=== PATIENT | male | born 1985 | race Two or more races ===

== ENCOUNTER 2024-04-25 11:00 | Emergency (ER) | payer MEDICAID, SELFPAY ==
[2024-04-25 11:20] VITALS: BP 156/92; PULSE 84; RESP 16; TEMP 36.7; O2SAT 99; BMI 29.0
--- NOTE | 2024-04-25 11:28 | XR_ITS ---
Examination: CT brain head without contrast. 2-D sagittal coronal reconstructions Date and time of exam:April 2019 5003 hrs. Indications: Onset dizziness episodes today CTDI: vol (mGy):51 DLP: (mGycm):1070 Technique: Multiple CT axial sections of the brain have been obtained, 5 mm slice thickness. Contrast has not been administered. 2-D sagittal, coronal reconstructions have been obtained Low dose protocols were performed. One or more of the following dose reduction techniques were used; automated exposure control, adjustment of the mA and/or KV according to patient size, use of iterative reconstruction technique. Findings: No significant ventricular enlargement. Intra-axial or extra-axial hemorrhage density is not seen. No mass effect or midline shift Basal cisterns are not remarkable. Fourth ventricle is midline. Cranial vault intact. Impression: Negative for acute hemorrhage, mass effect or midline shift Advise clinical correlation and follow-up accordingly
--- NOTE | 2024-04-25 11:28 | EKG_ITS ---
[facility] Test Date: 2024-04-25 Pat Name: KANE NICHOLSON Department: Room: - Gender: Male [employer]: : 1985 Requested By: Ricky Emmanuel Order Number: [id number] Reading MD: Ricky Emmanuel Measurements Intervals [place] Rate: 84 P: 32 SC: 147 QRS: 12 QRSD: 128 T: 40 QT: 344 QTc: 407 Interpretive Statements SINUS RHYTHM POSSIBLE RIGHT VENTRICULAR CONDUCTION DELAY [RSR (QR) IN V1/V2] No previous ECG available for comparison /[id number]/[email or web address]/[id number]
--- NOTE | 2024-04-25 11:30 | EDNOTE_ITS ---
ED Headache RME/HPI General Chief Complaint: Headache Stated Complaint: GARCIA X 1 WK, ACHING IN SHOULDERS X 1 WK Time Seen by Provider: 04/25/24 11:03 Source: patient Arrival date/time: 04/25/24 11:00 38-year-old male with no known medical history presents to the emergency room with a chief complaint of headache, dizziness, aching in shoulders x 1 week Mode of arrival: ambulatory Limitations: no limitations Related Data Previous Rx's ?Medication ?Instructions ?Recorded acetaminophen-caffeine 500 mg-65 1 tab PO Q8H PRN pain #30 tabs 04/25/24 mg tablet (Excedrin Tension Headache) meclizine 25 mg tablet 25 mg PO BID PRN dizziness # 14 tabs 04/25/24 Allergies Allergy/AdvReac Type Severity Reaction Status Date / Time No Known Allergies Allergy Verified 04/25/24 11:04 Review of Systems Review of Systems Systems Reviewed: All systems reviewed, normal except as documented Constitutional Constitutional: Reports system reviewed and no additional complaints, except as documented, Denies fatigue, Denies fever(s), Reports headache(s) and Reports weakness Eyes Eyes: Reports system reviewed and no additional complaints, except as documented, Denies blurry vision and Denies change in vision ENT Ears, Nose, Mouth, and Throat: Reports system reviewed and no additional complaints, except as documented, Reports dizziness, Denies otalgia, Reports headache(s), Denies nasal congestion, Denies throat swelling and Denies vertigo Cardiovascular Cardiovascular: Reports system reviewed and no additional complaints, except as documented, Denies chest pain, Denies dyspnea and Denies dyspnea on exertion Respiratory Respiratory: Reports system reviewed and no additional complaints, except as documented, Denies chest congestion, Denies cough, Denies dyspnea, Denies dyspnea on exertion and Denies wheezing Gastrointestinal Gastrointestinal: Reports system reviewed and no additional complaints, except as documented, Denies abdominal pain, Denies cramping, Denies nausea and Denies vomiting Genitourinary Genitourinary: Reports system reviewed and no additional complaints, except as documented, Denies dysuria and Denies hematuria Musculoskeletal Musculoskeletal: Reports system reviewed and no additional complaints, except as documented and Denies back pain Integumentary/Breasts Skin/Breast: Reports system reviewed and no additional complaints, except as documented and Denies wounds Neurologic Neurologic: Reports system reviewed and no additional complaints, except as documented, Denies confusion, Reports dizziness, Reports headache(s), Denies lack of coordination, Denies vertigo and Reports weakness Psychiatric Psychiatric: Reports system reviewed and no additional complaints, except as documented, Denies anxiety, Denies confusion, Denies depression, Denies paranoia, Denies suicidal ideation and Denies tactile hallucinations Endocrine Endocrine: Reports system reviewed and no additional complaints, except as documented and Denies fatigue Hematologic/Lymphatic Hematologic/Lymphatic: Reports system reviewed and no additional complaints, except as documented and Denies lymphadenopathy Allergic/Immunologic Allergic/Immunologic: Reports system reviewed and no additional complaints, except as documented, Denies throat swelling, Denies urticaria and Denies wheezing ED Exam General Limitations: Present no limitations Course Quality Measures none Orders Category Date Time Status EKG (ED ONLY) *Do not use* NOW Care 04/25/24 11:[address] head/brain wo con Stat Exams 04/25/24 11:28 Completed EKG (ED Only) Stat Exams 04/25/24 11:28 Draft CBC Stat Lab 04/25/24 12:10 Completed CMP [Comprehensive Metabolic Panel] Stat Lab 04/25/24 12:10 Completed Troponin I Stat Lab 04/25/24 12:10 Completed Urinalysis Stat Lab 04/25/24 12:40 Completed Urine Culture Stat Lab 04/25/24 12:40 Received Ketorolac Inj [Toradol Inj] Med 04/25/24 13:42 Discontinued 30 mg IM X1 ONE Meclizine HCl [Antivert] Med 04/25/24 11:29 Discontinued 50 mg PO X1 ONE SUMAtriptan INJ [Imitrex Inj] Med 04/25/24 13:42 Discontinued 6 mg SC X1 ONE Vital Signs Vital signs: Vital Signs Temperature 98.0 F 04/25/24 11:20 Pulse Rate 84 04/25/24 11:20 Respiratory Rate 16 04/25/24 11:20 Blood Pressure 156/92 H 04/25/24 11:20 Pulse Oximetry (%) 99 04/25/24 11:20 Oxygen Delivery Method Room Air 04/25/24 11:20 O2 saturation 99% within normal limits Headache MDM Narrative MDM Narrative:: 38-year-old male with no known medical history presents to the emergency room with a chief complaint of headache, dizziness, aching in shoulders x 1 week Patient is hemodynamically stable and in no apparent distress Physical examination shows a normal neurological exam. The patient is a GCS of 15 he is alert and oriented x 3. Pupils are PERRLA EOMs are intact. Patient states he is having sudden positional change dizziness. Patient is also complaining of aching in his shoulders and dizziness. EKG was completed and shows normal sinus rhythm at 84 bpm CBC CMP were negative for any acute findings Patient was discharged and educated to follow-up with primary care provider in the next 24 to 48 hours and return to the emergency room for any evidence of worsening signs or symptoms Patient data External records reviewed:: [facility] previous records Clinical information provided by:: patient Social determinants that could affect healthcare access:: none Patient has the following chronic illnesses:: No chronic illness How is presenting disease/condition affected by chronic disease/condition?: no chronic disease Evaluation data The following diagnostics were reviewed and interpreted by me:: lab results and radiology exam(s) Lab and/or radiology exams considered but not ordered:: Labs and radiology exams considered and ordered Interpretation Summary: CT of the head and brain-Findings: No significant ventricular enlargement. Intra-axial or extra-axial hemorrhage density is not seen. No mass effect or midline shift Basal cisterns are not remarkable. Fourth ventricle is midline. Cranial vault intact. Impression: Negative for acute hemorrhage, mass effect or midline shift Advise clinical correlation and follow-up accordingly Medications / Prescriptions Medications or Prescriptions considered but not ordered:: Medication given Medication administrations:: Medication Administration History Discontinued Medications Ketorolac Tromethamine (Ketorolac Inj 60 Mg/2 Ml Vial) 30 mg IM X1 ONE Stop: 04/25/24 13:43 Last Admin: 04/25/24 14:03 Dose: 30 mg Documented By: Meclizine HCl (Meclizine Hcl 25 Mg Tablet) 50 mg PO X1 ONE Stop: 04/25/24 11:30 Last Admin: 04/25/24 11:56 Dose: 50 mg Documented By: KM Sumatriptan Succinate (Sumatriptan Inj 6 Mg/0.5 Ml Vial) 6 mg SC X1 ONE Stop: 04/25/24 13:43 Last Admin: 04/25/24 14:03 Dose: 6 mg Documented By: Medication given Consultations Consultation(s) initiated? (list below): No Diagnosis Differential diagnosis headache: migraine, tension headache, headache, sinusitis and other (Vertigo) Most likely diagnosis given after review of the tests above:: Vertigo Admission Indicated Admission indicated?: not indicated Admission Request Was there a request for admission?: No Disposition Plan Disposition Plan: Discharge Discharge Attestation Discharge Attestation: The patient and all family members were given an opportunity to ask questions and understood the discharge instructions. Discharge instructions specifically effects, indications for sooner follow up or return to the emergency department, and the expected course of current diagnosis. Patient condition: Stable Discharge Plan Plan Patient Disposition: HOME (Self Care) Disposition Comment: Stable Prescriptions/Referrals Prescriptions/Med Rec: New Excedrin Tension Headache 500-65 mg tablet 1 tab PO Q8H PRN (Reason: pain) Qty: 30 0RF meclizine 25 mg tablet 25 mg PO BID PRN (Reason: dizziness) Qty: 14 0RF Referrals: Dot Schmid FNP [Primary Care Provider] - In 1 week Problem List Clinical Impression: Headache, Vertigo Patient/Caregiver Discharge Instructions Education Materials: ED Dizziness, Uncertain Cause Additional Instructions: Please follow-up with your primary care provider in the next 24 to 48 hours. Medication was sent to your pharmacy please pick it up and take it as indicated. Your CT of your head and brain was negative for any acute findings. Your blood work and urinalysis were also negative for any acute findings. For any evidence of worsening signs or symptoms return to the emergency room immediately Print Language: Persian Stand Alone Forms: Radha Award Info., Patient Portal Info Letter SKYLAR/OLIVIA Supervising Physician SKYLAR/OLIVIA Supervising Physician: Dr. KIRK
[2024-04-25] MEDS: MECLIZINE HCL 25 MG TABLET 50 MG PO (11:56)
[2024-04-25 12:23] LABS: Basophils # (Auto) 0.1 Thou/mm3 (0.0-0.2); Basophils % (Auto) 1 % (0-2.5); Eosinophils # (Auto) 0.1 Thou/mm3 (0.0-0.5); Eosinophils % (Auto) 1 % (0-10); Hemoglobin 14.5 g/dL (13.5-16.0); Immature Granulocytes % (Auto) 0 % (0-0); Immature Granulocytes Auto 0.04 Thou/mm3 (0.00-0.00); Lymphocytes # (Auto) 1.4 Thou/mm3 (1.0-4.8); Lymphocytes % (Auto) 13 % (10-50); Mean Corpuscular HGB Conc 33.7 g/dl (31.0-37.0); Mean Corpuscular Hemoglobin 29.8 pg (25.0-35.0); Mean Corpuscular Volume 88 fL (80-100); Monocytes # (Auto) 0.5 Thou/mm3 (0.0-0.8); Monocytes % (Auto) 5 % (0-12); Neutrophils # (Auto) 8.6 Thou/mm3 (1.8-7.7); Neutrophils % (Auto) 81 % (37-80); Nucleated Red Blood Cell % 0 /100 WBC (0); Platelet Count 302 Thou/mm3 (140-440); RDW Standard Deviation 41.4 fL (35.1-43.9); Red Blood Count 4.87 Miln/mm3 (4.50-5.90); White Blood Count 10.6 Thou/mm3 (3.8-10.6)
[2024-04-25 12:37] LABS: Alanine Aminotransferase 32 U/L (10-49); Albumin, Serum 4.2 gm/dL (3.5-5.0); Albumin/Globulin Ratio 1.6 (1.2-2.2); Alkaline Phosphatase 93 U/L (46-116); Anion Gap 4 (7-16); Aspartate Amino Transferase 14 U/L (0-34); BUN/Creatinine Ratio 10 Ratio (12-20); Bilirubin,Total 0.3 mg/dL (0.3-1.2); Blood Urea Nitrogen 9 mg/dL (9-23); Calcium 8.9 mg/dL (8.3-10.6); Calcium (Corrected) 8.9 mg/dL (8.5-10.1); Carbon Dioxide 28.4 mMol/L (20.0-31.0); Chloride 103 mMol/L (98-107); Creatinine (Component) 0.9 mg/dL (0.6-1.3); Estimated Creatinine Clearance 110.1 mL/min (>60); Globulin 2.6 gm/dL (2.3-3.5); Glucose 122 mg/dL (74-106); Osmolality,Calculated 269 (275-295); Potassium 3.9 mMol/L (3.4-5.1); Sodium 135 mMol/L (136-145); Total Protein 6.8 gm/dL (5.7-8.2); Troponin I < 0.002 ng/mL (0.0-0.045); eGFR > 60 See Note
[2024-04-25 12:47] LABS: Collection Type, Urine Clean Catch; Squamous Epithelial Cell,Urine 0 /hpf (0-5)
[2024-04-25 12:59] LABS: Bilirubin,Urine Negative (Negative); Blood,Urine Negative (Negative); Clarity,Urine Clear (Clear/Hazy); Color,Urine Lt-Yellow (Lt Yel-Yel); Glucose, Urine Negative (Negative); Ketones,Urine Negative (Negative); Leukocyte Esterase,Urine Negative (Negative); Nitrite,Urine Negative (Negative); PH,Urine 6.5 (5.0-7.0); Protein,Urine Negative (Neg - Trace); RBC,Urine 3 /hpf (0-3); Urobilinogen,Urine Negative mg/dL (0.0-1.0); WBC,Urine < 1 /hpf (0-5)
[2024-04-25] MEDS: SUMAtriptan INJ 6 MG/0.5 ML VIAL SC (14:03)
[2024-04-25] MEDS: KETOROLAC INJ 60 MG/2 ML VIAL 30 MG IM (14:03)
== END 2024-04-25 14:19 | disposition home or self-care (01) ==
PROVIDERS: Nurse Practitioner Family; Emergency Provider Emergency Medicine; PCP Nurse Practitioner Family
DX: R51.9 Headache, unspecified (principal); R42 Dizziness and giddiness; R94.31 Abnormal electrocardiogram [ECG] [EKG]
CPT/HCPCS: 36415; 70450; 80053; 81001; 84484; 85025; 87086; 93005; 96372; 99284; J1885; J3030; A9270